=== PATIENT | female | born 1990 | race American Indian/Alaskan Native ===

== ENCOUNTER 2017-10-30 07:46 | Emergency (ER) | payer OTHER ==
[2017-10-30 07:50] VITALS: BP 150/96
--- NOTE | 2017-10-30 08:19 | Emergency Department Report ---
ED Neck Pain/Injury HPI - General Chief Complaint: Neck Pain/Injury Stated Complaint: RIGHT SIDE NECK PAIN Time Seen by Provider: 10/30/17 08:12 Source: patient, family Mode of arrival: Ambulatory Limitations: No Limitations - History of Present Illness Initial Comments: Patient reports right neck pain this radiating from her mid neck posteriorly. She is also complaining of upper mid back pain. Denies any injury and report this started yesterday. 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 It is not out of 10 in taking and she said it feels like she pulled something. She took some Advil yesterday but did not relieve her pain. Denies any head injury. Denies any numbness or tingling to extremities. Denies any chest pain or shortness of breath. She does have a history of high blood pressure and her blood pressures stable. Patient is currently on her menses. Denies any trauma to the neck. Pain is better at rest and worse with movement. Denies any fever or chills. MD Complaint: neck pain, upper back pain Onset/Timin -: days(s) Place: other (unknown) Radiation: right lateral, upper back Severity: severe Severity scale (0 -10): 9 Quality: aching Consistency: constant Improves With: remaining still Worsens With: movement of extremity, movement of neck Context: lifting, unknown Associated Symptoms: denies: headache, fever, numbness, tingling, weakness, vertigo, difficulty walking, swollen glands, difficulty swallowing, nausea, vomiting Treatments Prior to Arrival: other (NSAIDs) - Related Data Previous Rx's Medication Instructions Recorded Last Taken Type Ibuprofen [Motrin] 600 mg PO Q8H PRN #12 tablet 10/30/17 Unknown Rx traMADol [Ultram] 50 mg PO Q6HR PRN #12 tablet 10/30/17 Unknown Rx Allergies Allergy/AdvReac Type Severity Reaction Status Date / Time No Known Allergies Allergy Unverified 10/30/17 07:48 ED Review of Systems ROS: Stated complaint: RIGHT SIDE NECK PAIN Other details as noted in HPI Comment: All other systems reviewed and negative Constitutional: no symptoms reported Eyes: denies: eye pain, eye discharge, vision change ENT: denies: ear pain, throat pain, congestion Respiratory: no symptoms reported Cardiovascular: denies: chest pain, palpitations, dyspnea on exertion, edema, syncope, paroxysmal nocturnal dyspnea Gastrointestinal: denies: abdominal pain, nausea, vomiting Genitourinary: denies: dysuria, hematuria Musculoskeletal: arthralgia, myalgia. denies: back pain, joint swelling Skin: denies: rash Neurological: denies: headache, weakness, numbness, paresthesias, confusion, abnormal gait, vertigo ED Past Medical Hx - Past Medical History Previous Medical History?: Yes Hx Hypertension: Yes - Surgical History Past Surgical History?: Yes Additional Surgical History: C/S, right ovary and fallopian tube removed - Family History Family history: hypertension - Social History Smoking Status: Current Every Day Smoker Substance Use Type: None - Medications Home Medications: Home Medications Medication Instructions Recorded Confirmed Last Taken Type Ibuprofen [Motrin] 600 mg PO Q8H PRN #12 tablet 10/30/17 Unknown Rx traMADol [Ultram] 50 mg PO Q6HR PRN #12 tablet 10/30/17 Unknown Rx ED Physical Exam - General Limitations: No Limitations General appearance: alert, in no apparent distress - Head Head exam: Present: atraumatic, normocephalic, normal inspection, other (normal exam) - Eye Eye exam: Present: normal appearance, PERRL, EOMI Pupils: Present: normal accommodation - ENT ENT exam: Present: normal exam, normal orophraynx, mucous membranes moist, TM's normal bilaterally, normal external ear exam - Neck Neck exam: Present: normal inspection, tenderness (tender to palpate to C-spine) , full ROM. Absent: meningismus, lymphadenopathy - Expanded Neck Exam Expanded Neck exam: Present: tenderness. Absent: midline deformity, anterior neck swelling, tracheal deviation - Respiratory Respiratory exam: Present: normal lung sounds bilaterally. Absent: respiratory distress, chest wall tenderness - Cardiovascular Cardiovascular Exam: Present: regular rate, normal rhythm, normal heart sounds - GI/Abdominal GI/Abdominal exam: Present: soft, normal bowel sounds. Absent: distended, tenderness, guarding, rebound, rigid - Extremities Exam Extremities exam: Present: normal inspection, full ROM, normal capillary refill , other (i think, cyanosis or edema. +2 pulses to all extremities. Bilateral hand cma strong and Equal. No Neurovascular Compromise). Absent: tenderness , pedal edema, joint swelling, calf tenderness - Back Exam Back exam: Present: normal inspection, full ROM, other (ambulated without any difficulties). Absent: tenderness, CVA tenderness (R), CVA tenderness (L), muscle spasm, paraspinal tenderness, vertebral tenderness, rash noted - Expanded Back Exam Expanded Back exam: Absent: saddle anesthesia Back exam: Negative Straight Leg Raising: Left, Right - Neurological Exam Neurological exam: Present: alert, oriented X3, normal gait, reflexes normal, other (no focal neurological deficit. +5 strength in all extremities). Absent : motor sensory deficit - Psychiatric Psychiatric exam: Present: normal affect, normal mood - Skin Skin exam: Present: warm, dry, intact, normal color. Absent: rash ED Course Vital Signs 10/30/17 07:48 Temperature 98.5 F Pulse Rate 88 Respiratory 18 Rate Blood Pressure 150/96 O2 Sat by Pulse 100 Oximetry - Reevaluation(s) Reevaluation #1: 10/30/17 11:40 Patient received Percocet 5/325 2 tablets by mouth, Toradol 60 mg IM in emergency room for neck and upper back pain. ED Medical Decision Making - Lab Data Lab Results 10/30/17 Range/Units Unknown Urine Color Yellow (Yellow) Urine Turbidity Clear (Clear) Urine pH 5.0 (5.0-7.0) Ur Specific [place] 1.027 (1.003-1.030) Urine Protein 30 mg/dl (Negative) mg/dL Urine Glucose (UA) Neg (Negative) mg/dL Urine Ketones Tr (Negative) mg/dL Urine Blood Lg (Negative) Urine Nitrite Neg (Negative) Urine Bilirubin Neg (Negative) Urine Urobilinogen < 2.0 (<2.0) mg/dL Ur Leukocyte Esterase Neg (Negative) Urine WBC (Auto) 1.0 (0.0-6.0) /HPF Urine RBC (Auto) 4.0 (0.0-6.0) /HPF U Epithel Cells (Auto) 10.0 (0-13.0) /HPF Urine Mucus Few /HPF Urine HCG, Qual Negative (Negative) - Radiology Data Radiology results: report reviewed Patient had CT of C-spine which revealed very mild early degenerative changes of the cervical spine without acute fracture dislocation. CT scan of thoracic spine reveals very mild degenerative changes at T7 and 8. No acute fracture or dislocation. There is mention of anterior osteophytes formation at T7 to T8 with disc space narrowing. - Medical Decision Making ED course: Pt here complaining of upper back pain and pain to the back of her neck that started yesterday radiating to right side of his neck. She denies any traumatic injury. Patient states that she lists sometimes heavy objects at work. C-spine and T-spine is tender to palpate with no apparent vertebral tenderness. No signs of inflammation. Neurological exam is normal. I discussed patient's CT scan result, diagnosis and treatment plan and need to follow up with orthopedic doctor. She voiced understanding patient was given Percocet 5/325 mg 2 tablets by mouth and Toradol 60 mg IM in emergency room for neck and upper back pain. Urinalysis negative except she had large blood which she is on her menses. Urine test is negative. Patient discharged home in stable condition with prescription for Motrin and Ultram and to follow up with Dr. Bolivar in 2-3 days Critical care attestation.: If time is entered above; I have spent that time in minutes in the direct care of this critically ill patient, excluding procedure time. ED Disposition Clinical Impression: Multilevel degenerative disc disease, Neck arthralgia, Upper back pain Disposition: DC-01 TO HOME OR SELFCARE Is pt being admited?: No Does the pt Need Aspirin: No Condition: Stable Instructions: Back Pain (ED), Arthralgia (ED), Degenerative Disc Disease (ED) Additional Instructions: Please follow-up with orthopedic doctor as instructed Take Motrin and Ultram for pain as prescribed but please do not drive or operate heavy machinery while taking Ultram as this medication causes drowsiness Avoid heavy lifting for the next week. Prescriptions: Ibuprofen [Motrin] 600 mg PO Q8H PRN #12 tablet PRN Reason: Pain traMADol [Ultram] 50 mg PO Q6HR PRN #12 tablet PRN Reason: severe pain Referrals: PRIMARY CARE, [Primary Care Provider] - 2-3 Days KATHRYN BOLIVAR MD [Staff Physician] - 11/01/17 Forms: Accompanied Note, Work/School Release Form(ED)
[2017-10-30 09:34] LABS: Bilirubin,Urine NEG (Negative); Blood,Urine LG (Negative); Color,Urine Yellow (Yellow); Mucus,Urine FEW /HPF; Urobilinogen,Urine < 2.0 mg/dL (<2.0)
[2017-10-30 09:35] LABS: HCG Qualitative,Urine Negative (Negative)
--- NOTE | 2017-10-30 10:42 | Cat Scan Report ---
FINAL REPORT EXAM: CT CERVICAL SPINE WO CON HISTORY: c spine pain COMPARISON: None. TECHNIQUE: Multiple contiguous axial images were obtained through the cervical spine without administration of IV contrast. Reformatted sagittal and coronal images were available for review. FINDINGS: There is normal alignment without acute fracture or dislocation. The vertebral body heights are maintained. The posterior elements are intact. The paravertebral soft tissues are normal. The airway is patent. There are mild hypertrophic changes of the C1-C2 articulation. C2-C3: Mild intervertebral disc space narrowing and uncovertebral osteophyte formation. No central or foraminal stenosis. C3-C4: Normal. C4-C5: Normal. C5-C6: Mild intervertebral disc space narrowing and uncovertebral osteophyte formation. No central or foraminal stenosis. C6-C7: Mild intervertebral disc space narrowing with uncovertebral and anterior osteophyte formation. No central or foraminal stenosis. C7-T1: Normal. IMPRESSION: Very mild early degenerative changes of the cervical spine without acute fracture or dislocation.
--- NOTE | 2017-10-30 10:46 | Cat Scan Report ---
FINAL REPORT EXAM: CT THORACIC SPINE WO CON HISTORY: T spine pain COMPARISON: None. TECHNIQUE: Multiple contiguous axial images were obtained through the thoracic spine without administration of IV contrast. Reformatted sagittal and coronal images were available for review. FINDINGS: There is normal alignment without acute fracture or dislocation. The vertebral body heights are maintained. There is no central or foraminal stenosis. There is mild intervertebral disc space narrowing with anterior osteophyte formation at T7-T8. The posterior elements are intact. The paravertebral soft tissues are normal. Visualized portion of the lungs is clear. IMPRESSION: Very mild degenerative changes at T7-T8. No acute fracture or dislocation.
[2017-10-30] MEDS ORDERED: PERCOCET 5/325 PO ONE (11:32)
[2017-10-30] MEDS ORDERED: TORADOL IM ONE (11:32)
== END 2017-10-30 12:28 | disposition home or self-care (01) ==
LOC: ED 07:46
DX: M51.34 Other intervertebral disc degeneration, thoracic region (principal); M54.9 Dorsalgia, unspecified; M54.2 Cervicalgia; I10 Essential (primary) hypertension; F17.200 Nicotine dependence, unspecified, uncomplicated
CPT/HCPCS: 72125; 72128; 81001; 81025; 96372; 99284; J1885

== ENCOUNTER 2017-11-06 21:10 | Emergency (ER) | payer SELFPAY ==
[2017-11-06] MEDS ORDERED: CATAPRES PO ONE (22:31)
[2017-11-06 23:03] LABS: Hematocrit 39.4 % (30.3-42.9); Hemoglobin 12.8 gm/dl (10.1-14.3); Mean Corpuscular HGB Conc 33 % (30-34); Mean Corpuscular Hemoglobin 30 pg (28-32); Mean Corpuscular Volume 91 fl (79-97); Platelet Count 328 K/mm3 (140-440); Red Blood Count 4.31 M/mm3 (3.65-5.03); Red Cell Distribution Width 16.7 % (13.2-15.2)
[2017-11-06 23:16] LABS: BUN/Creatinine Ratio 9; Blood Urea Nitrogen 8 mg/dL (7-17); Calcium 8.7 mg/dL (8.4-10.2); Hemolysis Index 6
[2017-11-06 23:20] LABS: INR 0.87 (0.87-1.13)
[2017-11-07 01:21] LABS: Basophils % (Manual) 0 % (0.0-1.8); Eosinophils % (Manual) 0 % (0.0-4.3); Total Cells Counted 100
[2017-11-07 01:23] LABS: Platelet Estimate Consistent w Auto
--- NOTE | 2017-11-07 06:57 | Emergency Department Report ---
ED General Adult HPI - General Chief complaint: High BP Stated complaint: RIGHT ARM,SHOULDER PAIN Time Seen by Provider: 11/07/17 06:50 Source: patient Mode of arrival: Ambulatory Limitations: No Limitations - History of Present Illness Initial comments: Patient presents to the emergency department with complaint of neck pain that radiates into her right arm and hand. Patient also complains that she has some tingling from the elbow down on the right side as well. Patient states she was seen here on October 30 and received CAT scans of her neck and back that showed degenerative joint disease. Patient denies any chest pain, abdominal pain, headache, facial droop, slurred speech. -: Gradual Radiation: other (into her right arm and hand) Severity scale (0 -10): 5 Quality: burning, aching, constant Consistency: constant Improves with: none Worsens with: none Associated Symptoms: denies other symptoms Treatments Prior to Arrival: NSAID - Related Data Previous Rx's Medication Instructions Recorded Last Taken Type Ibuprofen [Motrin] 600 mg PO Q8H PRN #12 tablet 10/30/17 Unknown Rx traMADol [Ultram] 50 mg PO Q6HR PRN #12 tablet 10/30/17 Unknown Rx Ibuprofen [Motrin] 800 mg PO Q8HR PRN #30 tablet 11/07/17 Unknown Rx Metoprolol [Lopressor TAB] 25 mg PO BID 30 Days #60 tablet 11/07/17 Unknown Rx Prednisone 50 mg PO QDAY #5 tablet 11/07/17 Unknown Rx Allergies Allergy/AdvReac Type Severity Reaction Status Date / Time No Known Allergies Allergy Verified 11/06/17 22:12 ED Review of Systems ROS: Stated complaint: RIGHT ARM,SHOULDER PAIN Other details as noted in HPI Comment: All other systems reviewed and negative Constitutional: denies: chills, fever Eyes: denies: eye pain, eye discharge, vision change ENT: denies: ear pain, throat pain Respiratory: denies: cough, shortness of breath, wheezing Cardiovascular: denies: chest pain, palpitations Endocrine: no symptoms reported Gastrointestinal: denies: abdominal pain, nausea, diarrhea Genitourinary: denies: urgency, dysuria, discharge Musculoskeletal: denies: back pain, joint swelling, arthralgia Skin: denies: rash, lesions Neurological: denies: headache, weakness, paresthesias Psychiatric: denies: anxiety, depression Hematological/Lymphatic: denies: easy bleeding, easy bruising ED Past Medical Hx - Past Medical History Hx Hypertension: Yes - Surgical History Additional Surgical History: C/S, right ovary and fallopian tube removed - Social History Smoking Status: Heavy Tobacco Smoker Substance Use Type: Alcohol - Medications Home Medications: Home Medications Medication Instructions Recorded Confirmed Last Taken Type Ibuprofen [Motrin] 600 mg PO Q8H PRN #12 tablet 10/30/17 Unknown Rx traMADol [Ultram] 50 mg PO Q6HR PRN #12 tablet 10/30/17 Unknown Rx Ibuprofen [Motrin] 800 mg PO Q8HR PRN #30 tablet 11/07/17 Unknown Rx Metoprolol [Lopressor TAB] 25 mg PO BID 30 Days #60 tablet 11/07/17 Unknown Rx Prednisone 50 mg PO QDAY #5 tablet 11/07/17 Unknown Rx ED Physical Exam - General Limitations: No Limitations General appearance: alert, in no apparent distress - Head Head exam: Present: atraumatic, normocephalic - Eye Eye exam: Present: normal appearance, PERRL, EOMI - ENT ENT exam: Present: mucous membranes moist - Neck Neck exam: Present: normal inspection, other (palpation of the paracervical region) - Respiratory Respiratory exam: Present: normal lung sounds bilaterally. Absent: respiratory distress, wheezes, rales, rhonchi - Cardiovascular Cardiovascular Exam: Present: regular rate, normal rhythm. Absent: systolic murmur, diastolic murmur, rubs, gallop - GI/Abdominal GI/Abdominal exam: Present: soft, normal bowel sounds. Absent: distended, tenderness - Extremities Exam Extremities exam: Present: normal inspection - Back Exam Back exam: Present: normal inspection - Neurological Exam Neurological exam: Present: alert, oriented X3, CN II-XII intact. Absent: motor sensory deficit - Psychiatric Psychiatric exam: Present: normal affect, normal mood - Skin Skin exam: Present: warm, dry, intact, normal color. Absent: rash ED Course Vital Signs 11/06/17 11/06/17 22:12 22:41 Temperature 98.1 F Pulse Rate 75 74 Respiratory 16 Rate Blood Pressure 164/116 164/116 O2 Sat by Pulse 100 Oximetry ED Medical Decision Making - Lab Data Result diagrams: 11/06/17 22:32 11/06/17 22:32 - Medical Decision Making Patient received clonidine prior to me seeing the patient. Discussed plan of care with patient CT from October 30 was reviewed Critical care attestation.: If time is entered above; I have spent that time in minutes in the direct care of this critically ill patient, excluding procedure time. ED Disposition Clinical Impression: Cervical radiculopathy, Hypertension Disposition: TO HOME OR SELFCARE Is pt being admited?: No Does the pt Need Aspirin: No Condition: Stable Instructions: Hypertension (ED), Cervical Radiculopathy (ED) Prescriptions: Ibuprofen [Motrin] 800 mg PO Q8HR PRN #30 tablet PRN Reason: Pain Metoprolol [Lopressor TAB] 25 mg PO BID 30 Days #60 tablet Prednisone 50 mg PO QDAY #5 tablet Referrals: PRIMARY CARE, [Primary Care Provider] - 3-5 Days URIEL SWANSON MD [Staff Physician] - 3-5 Days Time of Disposition: 08:19
[2017-11-07] MEDS ORDERED: VALIUM PO ONE (06:58)
[2017-11-07] MEDS ORDERED: ULTRAM PO ONE (06:58)
[2017-11-07] MEDS ORDERED: DELTASONE PO ONE (06:58)
[2017-11-07] MEDS ORDERED: NORCO 10/325 PO ONE (09:33)
[2017-11-07] MEDS ORDERED: ZOFRAN ODT PO ONE (09:34)
[2017-11-07 10:04] VITALS: BP 138/84
== END 2017-11-07 10:08 | disposition home or self-care (01) ==
LOC: ED 21:10
DX: M54.12 Radiculopathy, cervical region (principal); I10 Essential (primary) hypertension; F17.200 Nicotine dependence, unspecified, uncomplicated
CPT/HCPCS: 36415; 80048; 84484; 84703; 85007; 85025; 85610; 85670; 85730; 93005; 93010; 99283; J7512; Q0162

== ENCOUNTER 2018-04-25 13:53 | Emergency (ER) | payer OTHER ==
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
[2018-04-25] MEDS ORDERED: TORADOL IM ONE (15:13)
--- NOTE | 2018-04-25 16:08 | XRay Report ---
FINAL REPORT EXAM: XR CHEST ROUTINE 2V HISTORY: left sided chest pain TECHNIQUE: Frontal and lateral chest radiographs. PRIORS: None. FINDINGS: The cardiomediastinal silhouette is normal. No focal consolidation. No pleural effusion. No pneumothorax. No acute osseous abnormality. IMPRESSION: No acute cardiopulmonary process.
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
--- NOTE | 2018-04-25 17:22 | Cat Scan Report ---
FINAL REPORT EXAM: CT HEAD/BRAIN WO CON HISTORY: headache TECHNIQUE: CT of the head was performed without intravenous contrast. PRIORS: None. FINDINGS: The ventricles are normal in shape and position. The ventricles are nondilated. No intracranial hemorrhage, mass, mass effect, midline shift or evidence of acute ischemic infarct. The basilar cisterns are patent. The paranasal sinuses are clear. The extracranial soft tissues demonstrate no abnormality. The calvarium is intact. The orbits are intact. The mastoid air cells are clear. IMPRESSION: No acute intracranial abnormality.
[2018-04-25] MEDS ORDERED: NORVASC PO ONE (17:51)
[2018-04-25] MEDS ORDERED: ULTRAM PO ONE (18:05)
[2018-04-25] MEDS ORDERED: ULTRAM ONE (18:09)
[2018-04-25 18:10] VITALS: BP 163/115
== END 2018-04-25 18:55 | disposition home or self-care (01) ==
LOC: ED 13:53
DX: S16.1XXA Strain of muscle, fascia and tendon at neck level, initial encounter (principal); M94.0 Chondrocostal junction syndrome [Tietze]; R51 Headache; I10 Essential (primary) hypertension; Z90.721 Acquired absence of ovaries, unilateral; V49.59XA Passenger injured in collision with other motor vehicles in traffic accident, initial encounter; Y93.89 Activity, other specified; Y92.89 Other specified places as the place of occurrence of the external cause; Y99.8 Other external cause status
CPT/HCPCS: 70450; 71046; 72040; 96372; 99284; J1885

== ENCOUNTER 2018-08-09 14:31 | Emergency (ER) | payer MEDICAID, OTHER ==
[2018-08-09] MEDS ORDERED: BENADRYL PO ONE (15:14)
[2018-08-09] MEDS ORDERED: DELTASONE PO ONE (15:14)
--- NOTE | 2018-08-09 15:18 | Emergency Department Report ---
ED Rash HPI - HPI Chief Complaint: Skin Rash Stated Complaint: FACE BURNING FROM FACIAL SOAP Time Seen by Provider: 08/09/18 15:12 Duration: 2 Days Location: Other (face) Suspected Cause: Other (use soap, black soap) Rash Symptoms: Yes Itching, Yes Peeling, No Facial Swelling, No Tongue/Oral Swelling, No Breathing Difficulties, No Choking Sensation, No Wheezing/Dyspnea, No Blistering, No Fever, No Lightheaded, No Malaise, No Myalgias Severity: moderate Other History: She reports that she started using black silk 3 days ago and 2 days ago she noted itching around her facial area around mouth and chin. She reports that she has mild pain to the site that is tingling. 08/18. No alleviating or exacerbating factor. She reports that it is dry scaly and she does have a history of eczema but reported that it is not her eczema rash. Denies any respiratory problems. No Medication use ED Review of Systems ROS: Stated complaint: FACE BURNING FROM FACIAL SOAP Other details as noted in HPI Constitutional: denies: chills, fever ENT: denies: ear pain, throat pain, congestion Respiratory: denies: cough, shortness of breath, stridor, wheezing Cardiovascular: denies: chest pain, palpitations, edema, syncope Gastrointestinal: denies: nausea, vomiting Musculoskeletal: denies: back pain, joint swelling, arthralgia Skin: rash, pruritus Neurological: denies: headache ED Past Medical Hx - Past Medical History Previous Medical History?: Yes Hx Hypertension: Yes - Surgical History Past Surgical History?: Yes Additional Surgical History: C/S, right ovary and fallopian tube removed - Family History Family history: no significant - Social History Smoking Status: Current Every Day Smoker Substance Use Type: None - Medications Home Medications: Home Medications Medication Instructions Recorded Confirmed Last Taken Type Ibuprofen [Motrin] 600 mg PO Q8H PRN #12 tablet 10/30/17 Unknown Rx traMADol [Ultram] 50 mg PO Q6HR PRN #12 tablet 10/30/17 Unknown Rx Ibuprofen [Motrin] 800 mg PO Q8HR PRN #30 tablet 11/07/17 Unknown Rx Metoprolol [Lopressor TAB] 25 mg PO BID 30 Days #60 tablet 11/07/17 Unknown Rx predniSONE [Prednisone] 50 mg PO QDAY #5 tablet 11/07/17 Unknown Rx Acetaminophen/Codeine [Tylenol 1 tab PO Q6H PRN #8 tab 04/25/18 Unknown Rx /Codeine # 3 tab] Ibuprofen [Motrin 800 MG tab] 800 mg PO Q8HR PRN #12 tablet 04/25/18 Unknown Rx amLODIPine [Norvasc] 10 mg PO ONCE #30 tablet 04/25/18 Unknown Rx methOCARBAMOL [Robaxin TAB] 500 mg PO BID #10 tab 04/25/18 Unknown Rx HYDROcodone/APAP 5-325 [[place] 1 each PO Q4HR PRN #12 tablet 05/01/18 Unknown Rx 5/325] Ibuprofen [Motrin] 600 mg PO Q8H PRN #20 tablet 05/01/18 Unknown Rx Ondansetron [Zofran Odt] 4 mg PO Q8HR PRN #10 tab.rapdis 05/01/18 Unknown Rx Cetirizine HCl [ZyrTEC] 10 mg PO QAM 7 Days #7 capsule 08/09/18 Unknown Rx methylPREDNISolone [Medrol] 4 mg PO QAM 6 Days #1 tab.ds.pk 08/09/18 Unknown Rx Rash Exam - Exam General: Vital signs noted. No distress. Alert and acting appropriately. 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 HEENT: No Periorbital Edema, No Conjuctival Injection, No Chemosis, No Perioral Edema, No Tongue Edema, No Uvular Edema, No Compromised Airway, No Drooling Lungs: Yes Good Air Exchange, No Wheezes, No Ronchi, No Stridor, No Cough, No Labored Respirations, No Retractions, No Use of Accessory Muscles, No Other Abnormal Lung Sounds Heart: Yes Regular, No Murmur Front/Back of Body, Lg (Color): 1 - Noted to her scaly area mandible bilateral around mouth and chin. No erythema noted nontender to palpate. Skin: Yes Other (dry scaly area around the lateral mandible area, close the mouth without any drainage, induration or fluctuance. Hyperpigmented), No Urticarial Rash, No Maculopapular Rash, No Morbilliform rash, No Bulla(e), No Excoriations, No Weeping, No Tenderness, No Erythema, No Edema, No Encrustations ED Course Vital Signs 08/09/18 14:42 Temperature 98.4 F Pulse Rate 83 Respiratory 18 Rate Blood Pressure 166/116 O2 Sat by Pulse 100 Oximetry Vital Signs 08/09/18 08/09/18 14:42 15:28 Temperature 98.4 F 98.2 F Pulse Rate 83 78 Respiratory 18 15 Rate Blood Pressure 166/116 Blood Pressure 150/108 [Left] O2 Sat by Pulse 100 100 Oximetry - Reevaluation(s) Reevaluation #1: 08/09/18 15:22 Given Benadryl 50 mg by mouth and Deltasone 60 mg in Emergency room with no adverse reaction. ED Medical Decision Making - Medical Decision Making This is a 27-year-old female here for dry scaly rash to her facial area on both sides mandible and nontender. She is found to have allergic rash probably from new soap that she is using. She was given 60 mg by mouth and Phenergan. Emerge ncy room. I discussed the patient that she can use vitamin C and E combination to put in facial area as this is less Caustic than lotion because she said lotion was making her face burn. I also discussed with her put on Medrol Dosepak and Zyrtec to help with rash and to avoid putting topical steroid on her face as skin changes and she was understanding. 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 On her face. She was understanding and. Given prescription for Medrol Dosepak and Zyrtec Critical care attestation.: If time is entered above; I have spent that time in minutes in the direct care of this critically ill patient, excluding procedure time. ED Disposition Clinical Impression: Elevated blood pressure reading with diagnosis of hypertension Contact dermatitis Qualifiers: Contact dermatitis type: unspecified Contact dermatitis trigger: unspecified trigger Qualified Code(s): L25.9 - Unspecified contact dermatitis, unspecified cause Disposition: DC-01 TO HOME OR SELFCARE Is pt being admited?: No Does the pt Need Aspirin: No Condition: Stable Instructions: Acute Rash (ED), Hypertension (ED), DASH Eating Plan (ED) Additional Instructions: Please see medications prescribed Dermatologists in 3 days. Call today to schedule an appointment. Stop Using offending agent Keep record a few blood pressure in a daily basis and take to primary care physician with [facility] for evaluation and possible adjustment of medication. Please adhere to current medication treatment plan for blood pressure. Prescriptions: Cetirizine HCl [ZyrTEC] 10 mg PO QAM 7 Days #7 capsule methylPREDNISolone [Medrol] 4 mg PO QAM 6 Days #1 tab.ds.pk Referrals: TESFAYE HERRERA MD [Staff Physician] - 08/12/18 [facility] [Outside] - 3-5 Days (Primary care physician regarding management of elevated blood pressure) Forms: Accompanied Note
[2018-08-11 12:20] VITALS: BP 150/108
== END 2018-08-09 15:36 | disposition home or self-care (01) ==
LOC: ED 14:31
DX: L25.9 Unspecified contact dermatitis, unspecified cause (principal); I10 Essential (primary) hypertension; F17.200 Nicotine dependence, unspecified, uncomplicated
CPT/HCPCS: 99282; J7512

== ENCOUNTER 2018-09-05 09:43 | Emergency (ER) | payer OTHER ==
[2018-09-05] MEDS ORDERED: MORPHINE IV ONE ×2 (10:11→12:18)
[2018-09-05] MEDS ORDERED: ZOFRAN IV ONE (10:11)
--- NOTE | 2018-09-05 10:15 | Emergency Department Report ---
HPI - General Chief Complaint: High BP Time Seen by Provider: 09/05/18 10:11 - HPI HPI: 27-year-old -[place] female presents to the emergency department with a one-week history of a headache and some elevated blood pressure. The patient is a history of migraines and says that this feels similar except for she has had a few days of some blurry vision. She denies any numbness, paresthesias, trouble with movement or ambulation, or any other neurological deficits. She is tried Goody's powder multiple times for her symptoms without any relief. She does have a history of hypertension but has been out of her blood pressure medications for about one year. She does not have a primary care physician. No recent travel or sick contacts at home. ED Past Medical Hx - Past Medical History Hx Hypertension: Yes Hx Headaches / Migraines: Yes - Surgical History Additional Surgical History: C/S, right ovary and fallopian tube removed - Social History Smoking Status: Current Every Day Smoker Substance Use Type: None - Medications Home Medications: Home Medications Medication Instructions Recorded Confirmed Last Taken Type Ibuprofen [Motrin] 600 mg PO Q8H PRN #12 tablet 10/30/17 Unknown Rx traMADol [Ultram] 50 mg PO Q6HR PRN #12 tablet 10/30/17 Unknown Rx Ibuprofen [Motrin] 800 mg PO Q8HR PRN #30 tablet 11/07/17 Unknown Rx RX: Metoprolol [Lopressor TAB] 25 mg PO BID 30 Days #60 tablet 11/07/17 Unknown Rx RX: predniSONE [Prednisone] 50 mg PO QDAY #5 tablet 11/07/17 Unknown Rx Acetaminophen/Codeine [Tylenol 1 tab PO Q6H PRN #8 tab 04/25/18 Unknown Rx /Codeine # 3 tab] RX: Ibuprofen [Motrin 800 MG tab] 800 mg PO Q8HR PRN #12 tablet 04/25/18 Unknown Rx RX: amLODIPine [Norvasc] 10 mg PO ONCE #30 tablet 04/25/18 Unknown Rx methOCARBAMOL [Robaxin TAB] 500 mg PO BID #10 tab 04/25/18 Unknown Rx Ibuprofen [Motrin] 600 mg PO Q8H PRN #20 tablet 05/01/18 Unknown Rx Ondansetron [Zofran Odt] 4 mg PO Q8HR PRN #10 tab.rapdis 05/01/18 Unknown Rx Cetirizine HCl [ZyrTEC] 10 mg PO QAM 7 Days #7 capsule 08/09/18 Unknown Rx methylPREDNISolone [Medrol] 4 mg PO QAM 6 Days #1 tab.ds.pk 08/09/18 Unknown Rx Amlodipine Besylate [Norvasc] 10 mg PO QDAY #30 tablet 09/05/18 Unknown Rx RX: HYDROcodone/APAP 5-325 [[place] 1 each PO Q6H PRN #10 tablet 09/05/18 Unknown Rx 5-325 mg TAB] ED Review of Systems ROS: Stated complaint: HBP/NAUSEA Other details as noted in HPI Comment: All other systems reviewed and negative Constitutional: denies: chills, fever Eyes: vision change (blurry). denies: eye pain ENT: denies: ear pain, throat pain Respiratory: denies: cough, shortness of breath Cardiovascular: denies: chest pain, palpitations Gastrointestinal: denies: abdominal pain, vomiting Genitourinary: denies: dysuria, discharge Musculoskeletal: denies: back pain, arthralgia Skin: denies: rash, lesions Neurological: headache. denies: weakness, numbness, paresthesias, confusion Physical Exam - Physical Exam Vital Signs: Vital Signs 09/05/18 09:49 Temperature 98.9 F Pulse Rate 80 Respiratory 16 Rate Blood Pressure 176/127 O2 Sat by Pulse 99 Oximetry Physical Exam: GENERAL: The patient is well-developed well-nourished. HEENT: Normocephalic. Atraumatic. Patient has moist mucous membranes. EYES: Extraocular motions are intact. Pupils are equal and reactive to light bilaterally. No nystagmus. NECK: Supple. Trachea is midline. CHEST/LUNGS: Clear to auscultation. There is no respiratory distress noted. HEART/CARDIOVASCULAR: Regular. There is no tachycardia. There is no obvious murmur. ABDOMEN: There is no abdominal distention. SKIN: Skin is warm and dry. NEURO: The patient is awake, alert, and oriented. The patient is cooperative. The patient has no focal neurologic deficits. The patient has normal speech. Cranial nerves II through XII grossly intact. MUSCULOSKELETAL: There is no tenderness or deformity. There is no limitation range of motion. There is no evidence of acute injury. ED Course Vital Signs 09/05/18 09:49 Temperature 98.9 F Pulse Rate 80 Respiratory 16 Rate Blood Pressure 176/127 O2 Sat by Pulse 99 Oximetry ED Medical Decision Making - Lab Data Result diagrams: 09/05/18 10:27 09/05/18 10:27 - Radiology Data Radiology results: report reviewed CT HEAD WITHOUT CONTRAST: HISTORY: Headache. TECHNIQUE: Sequential 2.5mm CT images. COMPARISON: 04/25/18. FINDINGS: Cerebral Parenchyma: Within normal limits. Cerebellum: Within normal limits. Brainstem: Within normal limits. Ventricles: Normal. Sella: Normal. Extra-axial spaces: Normal. Basal Cisterns: Normal. Intracranial Hemorrhage: None. Midline Shift: None. Calvarium: Normal. Sinuses: Normal. Mastoid Air Cells: Normal. Visualized Orbits: Normal. IMPRESSION: Cranial CT scan within normal limits. Transcribed By: TTR Dictated By: BEATRIZ CALLES JR, MD Electronically Authenticated By: BEATRIZ CALLES JR, MD Signed Date/Time: 09/05/18 1252 - Medical Decision Making Patient presents to the emergency department with complaint of a left-sided h eadache with some blurry vision and some hypertension. She does have a history of migraines. The patient also has a history of hypertension and has been without her blood pressure medications for the past year. A CT scan of the head was done without contrast that did not show any bleed, shift, mass, ischemia, or any other acute process. On physical examination she does not have any focal, motor or sensory deficits in her cranial nerves appear intact. She was given a few doses of pain medication along with antiemetics and upon reevaluation she is feeling improved. Labs have been unremarkable including her CBC, metabolic panel, ESR. Prior to discharge, the patient was seen ambulatory in both appears and feels stable. She has been given referrals for primary care and neurology. She will return to the ER with any worsening of her symptoms or any acute distress. - Differential Diagnosis tension headache, migraine, subarachnoid hemorrhage, cluster headache Critical Care Time: No Critical care attestation.: If time is entered above; I have spent that time in minutes in the direct care of this critically ill patient, excluding procedure time. ED Disposition Clinical Impression: Headache Qualifiers: Headache type: unspecified Headache chronicity pattern: acute headache Intractability: not intractable Qualified Code(s): R51 - Headache Hypertension Qualifiers: Hypertension type: essential hypertension Qualified Code(s): I10 - Essential (primary) hypertension Disposition: - TO HOME OR SELFCARE Is pt being admited?: No Condition: Stable Instructions: How to Stop Smoking (ED), Migraine Headache (ED), Acute Headache (ED), Hypertension (ED) Additional Instructions: Please follow up with a primary care physician in the next few days. Return to the emergency Department with any worsening of your symptoms or any acute distress. I have given you a referral for a local neurologist, Dr. Mercedes, to follow up regarding her headaches. You have been prescribed a medication that can be sedating. Therefore, this medication cannot be taken prior to driving, working, being responsible for children, and cannot be mixed with alcohol of any quantity.r Prescriptions: Amlodipine Besylate [Norvasc] 10 mg PO QDAY #30 tablet RX: HYDROcodone/APAP 5-325 [[place] 5-325 mg TAB] 1 each PO Q6H PRN #10 tablet PRN Reason: Pain Referrals: ALISSA KRUEGER DO [Staff Physician] - 2-3 Days OSIRIS MERCEDES MD [Staff Physician] - 2-3 Days [facility] [Outside] - 2-3 Days Time of Disposition: 15:02
[2018-09-05 10:44] LABS: Hematocrit 38.3 % (30.3-42.9); Hemoglobin 12.6 gm/dl (10.1-14.3); Mean Corpuscular HGB Conc 33 % (30-34); Mean Corpuscular Hemoglobin 31 pg (28-32); Mean Corpuscular Volume 94 fl (79-97); Platelet Count 334 K/mm3 (140-440); Red Blood Count 4.06 M/mm3 (3.65-5.03); Red Cell Distribution Width 14.9 % (13.2-15.2)
[2018-09-05 10:57] LABS: Basophils # (Auto) 0.1 K/mm3 (0.0-0.1); Basophils % (Auto) 1.3 % (0.0-1.8); Eosinophils % (Auto) 0.7 % (0.0-4.3); Lymphocytes # (Auto) 1.2 K/mm3 (1.2-5.4); Lymphocytes % (Auto) 24.1 % (13.4-35.0); Monocytes # (Auto) 0.6 K/mm3 (0.0-0.8); Monocytes % (Auto) 12.2 % (0.0-7.3)
[2018-09-05 11:07] LABS: BUN/Creatinine Ratio 15; Blood Urea Nitrogen 9 mg/dL (7-17); Calcium 8.5 mg/dL (8.4-10.2); Hemolysis Index 5
[2018-09-05] MEDS ORDERED: NORVASC PO ONE (11:42)
--- NOTE | 2018-09-05 12:56 | Cat Scan Report ---
CT HEAD WITHOUT CONTRAST: HISTORY: Headache. TECHNIQUE: Sequential 2.5mm CT images. COMPARISON: 04/25/18. FINDINGS: Cerebral Parenchyma: Within normal limits. Cerebellum: Within normal limits. Brainstem: Within normal limits. Ventricles: Normal. Sella: Normal. Extra-axial spaces: Normal. Basal Cisterns: Normal. Intracranial Hemorrhage: None. Midline Shift: None. Calvarium: Normal. Sinuses: Normal. Mastoid Air Cells: Normal. Visualized Orbits: Normal. IMPRESSION: Cranial CT scan within normal limits.
[2018-09-05] MEDS ORDERED: APRESOLINE IV ONE (13:24)
[2018-09-05 14:58] VITALS: BP 159/107
== END 2018-09-05 15:23 | disposition home or self-care (01) ==
LOC: ED 09:43
DX: I10 Essential (primary) hypertension (principal); G43.909 Migraine, unspecified, not intractable, without status migrainosus; F17.200 Nicotine dependence, unspecified, uncomplicated; Z91.018 Allergy to other foods
CPT/HCPCS: 36415; 70450; 80048; 84703; 85025; 85652; 96374; 96375; 96376; 99284; G0480; J0360; J2270; J2405; 80320

== ENCOUNTER 2019-03-14 16:28 | Emergency (ER) | payer SELFPAY ==
[2019-03-14] MEDS ORDERED: BENADRYL IV ONE (17:34)
[2019-03-14] MEDS ORDERED: TORADOL IV ONE (17:34)
[2019-03-14] MEDS ORDERED: REGLAN IV ONE (17:34)
[2019-03-14] MEDS ORDERED: CATAPRES PO ONE (17:34)
--- NOTE | 2019-03-14 17:36 | Event Note ---
ED Screening Note Date of service: 03/14/19 Time: 17:32 ED Screening Note: 28 y/o female comes in for elevated blood pressure and migraine. Having blurry vision, light sensitivity sound sensitivity. nausea no vomiting. LMP 03/04/19 This initial assessment/diagnostic orders/clinical plan/treatment(s) is/are subject to change based on patients health status, clinical progression and re- assessment by fellow clinical providers in the ED. Further treatment and workup at subsequent clinical providers discretion. Patient/guardian urged not to elope from the ED as their condition may be serious if not clinically assessed and managed. Initial orders include:
--- NOTE | 2019-03-14 18:38 | Emergency Department Report ---
ED Headache HPI - General Chief Complaint: Headache Stated Complaint: MIGRAINE/NAUSEA/BP CHECK Time Seen by Provider: 03/14/19 17:31 - History of Present Illness Initial Comments: 28 y/o female comes in for elevated blood pressure and migraine. Having blurry vision, light sensitivity sound sensitivity. nausea no vomiting. LMP 03/04/19 , pain rated at 5/10 exacerbated by light and activity patient states out of BP medicines were last month . No chest pain or shortness of breath no dizziness or lightheadedness, no fever or neck pain this headache is in same location as usual location. Timing/Duration: 24 hours Quality: moderate Head Injury Location: frontal Recent Head Trauma: no recent headache/trauma, occasional headaches Associated Symptoms: denies: fever/chills, loss of consciousness, nausea/vomiting, nasal congestion, nasal drainage, seizures, sinus infection, stiff neck, weakness Allergies/Adverse Reactions: Allergies No Known Allergies Allergy (Verified 03/14/19 16:31) Home Medications: Ambulatory Orders Ibuprofen [Motrin] 600 mg PO Q8H PRN #12 tablet 10/30/17 traMADol [Ultram] 50 mg PO Q6HR PRN #12 tablet 10/30/17 Ibuprofen [Motrin] 800 mg PO Q8HR PRN #30 tablet 11/07/17 Metoprolol [Lopressor TAB] 25 mg PO BID 30 Days #60 tablet 11/07/17 predniSONE [Prednisone] 50 mg PO QDAY #5 tablet 11/07/17 Acetaminophen/Codeine [Tylenol /Codeine # 3 tab] 1 tab PO Q6H PRN #8 tab 04/25/18 Ibuprofen [Motrin 800 MG tab] 800 mg PO Q8HR PRN #12 tablet 04/25/18 amLODIPine [Norvasc] 10 mg PO ONCE #30 tablet 04/25/18 methOCARBAMOL [Robaxin TAB] 500 mg PO BID #10 tab 04/25/18 Ibuprofen [Motrin] 600 mg PO Q8H PRN #20 tablet 05/01/18 Ondansetron [Zofran Odt] 4 mg PO Q8HR PRN #10 tab.rapdis 05/01/18 Cetirizine HCl [ZyrTEC] 10 mg PO QAM 7 Days #7 capsule 08/09/18 methylPREDNISolone [Medrol] 4 mg PO QAM 6 Days #1 tab.ds.pk 08/09/18 Amlodipine Besylate [Norvasc] 10 mg PO QDAY #30 tablet 09/05/18 HYDROcodone/APAP 5-325 [[place] 5-325 mg TAB] 1 each PO Q6H PRN #10 tablet 09/05/18 Acetaminophen [Acetaminophen TAB] 1,000 mg PO Q6HR PRN #30 tablet 03/14/19 Metoclopramide [Reglan] 10 mg PO Q6H PRN #30 tablet 03/14/19 amLODIPine [Norvasc] 10 mg PO DAILY #30 tab 03/14/19 diphenhydrAMINE [Benadryl CAP] 25 mg PO Q6HR PRN #30 capsule 03/14/19 ED Review of Systems ROS: Stated complaint: MIGRAINE/NAUSEA/BP CHECK Other details as noted in HPI Constitutional: denies: chills, fever, weakness Eyes: denies: eye pain, eye discharge, vision change ENT: congestion. denies: ear pain, throat pain, dental pain Respiratory: cough. denies: shortness of breath, wheezing Cardiovascular: denies: chest pain, palpitations, orthopnea Endocrine: no symptoms reported Gastrointestinal: nausea, vomiting. denies: abdominal pain, diarrhea, constipation Genitourinary: denies: urgency, dysuria, frequency, hematuria, discharge Musculoskeletal: denies: back pain, joint swelling, arthralgia Skin: denies: rash, lesions Neurological: denies: headache, weakness, paresthesias Psychiatric: denies: anxiety, depression Hematological/Lymphatic: denies: easy bleeding, easy bruising ED Past Medical Hx - Past Medical History Previous Medical History?: Yes Hx Hypertension: Yes Hx Headaches / Migraines: Yes - Surgical History Past Surgical History?: Yes Additional Surgical History: C/S, right ovary and fallopian tube removed - Social History Smoking Status: Current Every Day Smoker Substance Use Type: None - Medications Home Medications: Home Medications Medication Instructions Recorded Confirmed Last Taken Type Ibuprofen [Motrin] 600 mg PO Q8H PRN #12 tablet 10/30/17 Unknown Rx traMADol [Ultram] 50 mg PO Q6HR PRN #12 tablet 10/30/17 Unknown Rx Ibuprofen [Motrin] 800 mg PO Q8HR PRN #30 tablet 11/07/17 Unknown Rx Metoprolol [Lopressor TAB] 25 mg PO BID 30 Days #60 tablet 11/07/17 Unknown Rx predniSONE [Prednisone] 50 mg PO QDAY #5 tablet 11/07/17 Unknown Rx Acetaminophen/Codeine [Tylenol 1 tab PO Q6H PRN #8 tab 04/25/18 Unknown Rx /Codeine # 3 tab] Ibuprofen [Motrin 800 MG tab] 800 mg PO Q8HR PRN #12 tablet 04/25/18 Unknown Rx amLODIPine [Norvasc] 10 mg PO ONCE #30 tablet 04/25/18 Unknown Rx methOCARBAMOL [Robaxin TAB] 500 mg PO BID #10 tab 04/25/18 Unknown Rx Ibuprofen [Motrin] 600 mg PO Q8H PRN #20 tablet 05/01/18 Unknown Rx Ondansetron [Zofran Odt] 4 mg PO Q8HR PRN #10 tab.rapdis 05/01/18 Unknown Rx Cetirizine HCl [ZyrTEC] 10 mg PO QAM 7 Days #7 capsule 08/09/18 Unknown Rx methylPREDNISolone [Medrol] 4 mg PO QAM 6 Days #1 tab.ds.pk 08/09/18 Unknown Rx Amlodipine Besylate [Norvasc] 10 mg PO QDAY #30 tablet 09/05/18 Unknown Rx HYDROcodone/APAP 5-325 [[place] 1 each PO Q6H PRN #10 tablet 09/05/18 Unknown Rx 5-325 mg TAB] Acetaminophen [Acetaminophen TAB] 1,000 mg PO Q6HR PRN #30 tablet 03/14/19 Un known Rx Metoclopramide [Reglan] 10 mg PO Q6H PRN #30 tablet 03/14/19 Unknown Rx amLODIPine [Norvasc] 10 mg PO DAILY #30 tab 03/14/19 Unknown Rx diphenhydrAMINE [Benadryl CAP] 25 mg PO Q6HR PRN #30 capsule 03/14/19 Unknown Rx ED Physical Exam - General Limitations: No Limitations General appearance: alert, in no apparent distress - Head Head exam: Present: atraumatic, normocephalic - Eye Eye exam: Present: normal appearance, PERRL, EOMI. Absent: conjunctival injection, nystagmus Pupils: Present: normal accommodation - ENT ENT exam: Present: normal orophraynx, mucous membranes moist, TM's normal bilaterally, normal external ear exam - Expanded ENT Exam Expanded Throat exam: Positive: tonsillar erythema, other (uvula midline no exudate no stridor no wheezing ). Negative: tonsillomegaly, tonsillar exudate, R peritonsillar mass, L peritonsillar mass - Neck Neck exam: Present: normal inspection, full ROM. Absent: tenderness, lymphadenopathy - Respiratory Respiratory exam: Present: normal lung sounds bilaterally. Absent: respiratory distress, wheezes, rales, rhonchi, stridor, chest wall tenderness - Cardiovascular Cardiovascular Exam: Present: regular rate, normal rhythm, normal heart sounds. Absent: systolic murmur, diastolic murmur, rubs, gallop - GI/Abdominal GI/Abdominal exam: Present: soft, normal bowel sounds. Absent: distended, tenderness, guarding, rebound, rigid, bruit, hernia - Rectal Rectal exam: Present: deferred - Extremities Exam Extremities exam: Present: normal inspection, full ROM, normal capillary refill. Absent: tenderness, pedal edema, joint swelling, calf tenderness - Back Exam Back exam: Present: normal inspection, full ROM. Absent: tenderness, CVA tenderness (R), CVA tenderness (L), muscle spasm, paraspinal tenderness, rash noted - Neurological Exam Neurological exam: Present: alert, oriented X3, CN II-XII intact, normal gait, reflexes normal. Absent: motor sensory deficit - Expanded Neurological Exam Expanded Neurological exam: Absent: ataxia Patient oriented to: Present: person, place, time Speech: Present: fluid speech Cranial nerves: EOM's Intact: Normal, Gag Reflex: Normal, Tongue Deviation: Normal, Nystagmus: Normal, Facial Sensation: Normal Cerebellar function: Finger to Nose: Normal, Heel to [place]: Normal Upper motor neuron: [place] Neglect: Normal, Pronator Drift: Normal, Sensory Extinction: Normal Motor strength exam: RUE: 5, LUE: 5, RLE: 5, LLE: 5 DTR: bicep (R): 2+, bicep (L): 2+, ankle (R): 2+, ankle (L): 2+ Best Eye Response ([place]): (4) open spontaneously Best Motor Response ([place]): (6) obeys commands Best Verbal Response ([place]): (5) oriented [place] Total: 15 - Psychiatric Psychiatric exam: Present: normal affect, normal mood - Skin Skin exam: Present: warm, dry, intact, normal color. Absent: rash ED Course Vital Signs 03/14/19 03/14/19 17:31 17:38 Temperature 98.5 F Pulse Rate 84 85 Respiratory 20 Rate Blood Pressure 162/112 162/110 Blood Pressure 162/112 [Right] O2 Sat by Pulse 100 Oximetry ED Medical Decision Making - Medical Decision Making Headache is improved pain now 2/10 BP improved plan: tylenol, benadryl, reglan, refill amlodipine follow up with pcp in 2-3 days, pt verbalized agreement and understanding of discharge plan. pt dc'd to home with stable condition at this time. Critical care attestation.: If time is entered above; I have spent that time in minutes in the direct care of this critically ill patient, excluding procedure time. ED Disposition Clinical Impression: Headache Qualifiers: Headache type: unspecified Headache chronicity pattern: acute headache Intractability: not intractable Qualified Code(s): R51 - Headache Disposition: DC-01 TO HOME OR SELFCARE Is pt being admited?: No Does the pt Need Aspirin: No Condition: Stable Instructions: Acute Headache (ED) Prescriptions: Acetaminophen [Acetaminophen TAB] 1,000 mg PO Q6HR PRN #30 tablet PRN Reason: Headache diphenhydrAMINE [Benadryl CAP] 25 mg PO Q6HR PRN #30 capsule PRN Reason: Headache amLODIPine [Norvasc] 10 mg PO DAILY #30 tab Metoclopramide [Reglan] 10 mg PO Q6H PRN #30 tablet PRN Reason: Headache Referrals: PRIMARY CARE,MD [Primary Care Provider] - 3-5 Days Forms: Work/School Release Form(ED) Time of Disposition: 19:17
[2019-03-14 19:33] VITALS: BP 137/103
== END 2019-03-14 19:31 | disposition home or self-care (01) ==
LOC: ED 16:28
DX: R51 Headache (principal); I10 Essential (primary) hypertension; G43.909 Migraine, unspecified, not intractable, without status migrainosus; F17.200 Nicotine dependence, unspecified, uncomplicated; Z79.899 Other long term (current) drug therapy
CPT/HCPCS: 96374; 96375; 99282; J1200; J1885; J2765

== ENCOUNTER 2019-05-16 13:24 | Emergency (ER) | payer SELFPAY ==
--- NOTE | 2019-05-16 13:43 | Event Note ---
ED Screening Note Date of service: 05/16/19 Time: 13:39 ED Screening Note: This is a 28 y.o. F. that presents to the ER with headache and blurry vision since this morning. PMH of HTN Reports being off medication for 2 months. This initial assessment/diagnostic orders/clinical plan/treatment(s) is/are subject to change based on patients health status, clinical progression and re- assessment by fellow clinical providers in the ED. Further treatment and workup at subsequent clinical providers discretion. Patient/guardian urged not to elope from the ED as their condition may be serious if not clinically assessed and managed. Initial orders include: Labs
[2019-05-16 14:38] LABS: Basophils % (Auto) 0.4 % (0.0-1.8); Eosinophils # (Auto) 0.1 K/mm3 (0.0-0.4); Eosinophils % (Auto) 1.4 % (0.0-4.3); Hematocrit 40.3 % (30.3-42.9); Hemoglobin 12.8 gm/dl (10.1-14.3); Lymphocytes # (Auto) 1.4 K/mm3 (1.2-5.4); Lymphocytes % (Auto) 22.3 % (13.4-35.0); Mean Corpuscular HGB Conc 32 % (30-34); Mean Corpuscular Volume 92 fl (79-97); Monocytes # (Auto) 0.6 K/mm3 (0.0-0.8); Monocytes % (Auto) 9.6 % (0.0-7.3); Platelet Count 359 K/mm3 (140-440); Red Blood Count 4.38 M/mm3 (3.65-5.03); Red Cell Distribution Width 16.9 % (13.2-15.2)
[2019-05-16 15:02] LABS: BUN/Creatinine Ratio 14; Blood Urea Nitrogen 11 mg/dL (7-17); Calcium 8.8 mg/dL (8.4-10.2); Hemolysis Index 8
[2019-05-16] MEDS ORDERED: SUMAtriptan SUCCINATE 50 MG TAB PO ONE (17:00)
[2019-05-16] MEDS ORDERED: METOCLOPRAMIDE 10 MG TAB PO ONE (17:46)
[2019-05-16] MEDS ORDERED: amLODIPine 5 MG TAB PO ONE (17:50)
--- NOTE | 2019-05-16 18:01 | Emergency Department Report ---
<JAIME CAO - Last Filed: 05/16/19 18:26> ED General Adult HPI - General Chief complaint: High BP Stated complaint: HBP/SOB/JAQUAN/BACK PAIN/EYE PAIN Time Seen by Provider: 05/16/19 13:39 Source: patient Mode of arrival: Ambulatory Limitations: No Limitations - History of Present Illness Initial comments: Patient is a 28-year-old female presents emergency room with complaints of "high blood pressure." She states for the last few days she has had headache, pain in the eyes, nausea. she denies any vision changes, vomiting, numbness, weakness, speech disturbance, gait disturbance. Patient states she has a past medical history of high blood pressure and has not taken her medication in "awhile". Patient does not know what her blood pressure medication is. She denies any other past medical history or allergies medications. she states she does not have a PCP. pt was evaluated in the ED for the exact same complaint two months ago, she never followed up with a primary care doctor. pt was given prescription for amlodipine 10 mg in march 2019. - Related Data Previous Rx's Medication Instructions Recorded Last Taken Type Ibuprofen [Motrin] 600 mg PO Q8H PRN #12 tablet 10/30/17 Unknown Rx traMADol [Ultram] 50 mg PO Q6HR PRN #12 tablet 10/30/17 Unknown Rx Ibuprofen [Motrin] 800 mg PO Q8HR PRN #30 tablet 11/07/17 Unknown Rx Metoprolol [Lopressor TAB] 25 mg PO BID 30 Days #60 tablet 11/07/17 Unknown Rx predniSONE [Prednisone] 50 mg PO QDAY #5 tablet 11/07/17 Unknown Rx Acetaminophen/Codeine [Tylenol 1 tab PO Q6H PRN #8 tab 04/25/18 Unknown Rx /Codeine # 3 tab] Ibuprofen [Motrin 800 MG tab] 800 mg PO Q8HR PRN #12 tablet 04/25/18 Unknown Rx amLODIPine 10 mg PO ONCE #30 tablet 04/25/18 Unknown Rx methOCARBAMOL [Robaxin TAB] 500 mg PO BID #10 tab 04/25/18 Unknown Rx Ibuprofen [Motrin] 600 mg PO Q8H PRN #20 tablet 05/01/18 Unknown Rx Ondansetron [Zofran Odt] 4 mg PO Q8HR PRN #10 tab.rapdis 05/01/18 Unknown Rx Cetirizine HCl [ZyrTEC] 10 mg PO QAM 7 Days #7 capsule 08/09/18 Unknown Rx methylPREDNISolone [Medrol] 4 mg PO QAM 6 Days #1 tab.ds.pk 08/09/18 Unknown Rx Amlodipine Besylate [Norvasc] 10 mg PO QDAY #30 tablet 09/05/18 Unknown Rx HYDROcodone/APAP 5-325 [Chazy 1 each PO Q6H PRN #10 tablet 09/05/18 Unknown Rx 5-325 mg TAB] Acetaminophen [Acetaminophen TAB] 1,000 mg PO Q6HR PRN #30 tablet 03/14/19 Unknown Rx Metoclopramide [Reglan] 10 mg PO Q6H PRN #30 tablet 03/14/19 Unknown Rx amLODIPine 10 mg PO DAILY #30 tab 03/14/19 Unknown Rx diphenhydrAMINE [Benadryl CAP] 25 mg PO Q6HR PRN #30 capsule 03/14/19 Unknown Rx Acetaminophen [Non-Aspirin Extra 1,000 mg PO Q6H PRN #60 tablet 05/16/19 Unknown Rx Strength] Metoclopramide [Reglan] 10 mg PO Q6H PRN #30 tab 05/16/19 Unknown Rx amLODIPine 10 mg PO DAILY #30 tab 05/16/19 Unknown Rx diphenhydrAMINE [Benadryl CAP] 25 mg PO Q6H PRN #30 capsule 05/16/19 Unknown Rx Allergies Allergy/AdvReac Type Severity Reaction Status Date / Time No Known Allergies Allergy Verified 03/14/19 16:31 ED Review of Systems Comment: All other systems reviewed and negative ED Past Medical Hx - Past Medical History Hx Hypertension: Yes Hx Headaches / Migraines: Yes - Surgical History Additional Surgical History: C/S, right ovary and fallopian tube removed - Social History Smoking Status: Current Every Day Smoker Substance Use Type: Alcohol - Medications Home Medications: Home Medications Medication Instructions Recorded Confirmed Last Taken Type Ibuprofen [Motrin] 600 mg PO Q8H PRN #12 tablet 10/30/17 Unknown Rx traMADol [Ultram] 50 mg PO Q6HR PRN #12 tablet 10/30/17 Unknown Rx Ibuprofen [Motrin] 800 mg PO Q8HR PRN #30 tablet 11/07/17 Unknown Rx Metoprolol [Lopressor TAB] 25 mg PO BID 30 Days #60 tablet 11/07/17 Unknown Rx predniSONE [Prednisone] 50 mg PO QDAY #5 tablet 11/07/17 Unknown Rx Acetaminophen/Codeine [Tylenol 1 tab PO Q6H PRN #8 tab 04/25/18 Unknown Rx /Codeine # 3 tab] Ibuprofen [Motrin 800 MG tab] 800 mg PO Q8HR PRN #12 tablet 04/25/18 Unknown Rx amLODIPine 10 mg PO ONCE #30 tablet 04/25/18 Unknown Rx methOCARBAMOL [Robaxin TAB] 500 mg PO BID #10 tab 04/25/18 Unknown Rx Ibuprofen [Motrin] 600 mg PO Q8H PRN #20 tablet 05/01/18 Unknown Rx Ondansetron [Zofran Odt] 4 mg PO Q8HR PRN #10 tab.rapdis 05/01/18 Unknown Rx Cetirizine HCl [ZyrTEC] 10 mg PO QAM 7 Days #7 capsule 08/09/18 Unknown Rx methylPREDNISolone [Medrol] 4 mg PO QAM 6 Days #1 tab.ds.pk 08/09/18 Unknown Rx Amlodipine Besylate [Norvasc] 10 mg PO QDAY #30 tablet 09/05/18 Unknown Rx HYDROcodone/APAP 5-325 [Chazy 1 each PO Q6H PRN #10 tablet 09/05/18 Unknown Rx 5-325 mg TAB] Acetaminophen [Acetaminophen TAB] 1,000 mg PO Q6HR PRN #30 tablet 03/14/19 Unknown Rx Metoclopramide [Reglan] 10 mg PO Q6H PRN #30 tablet 03/14/19 Unknown Rx amLODIPine 10 mg PO DAILY #30 tab 03/14/19 Unknown Rx diphenhydrAMINE [Benadryl CAP] 25 mg PO Q6HR PRN #30 capsule 03/14/19 Unknown Rx Acetaminophen [Non-Aspirin Extra 1,000 mg PO Q6H PRN #60 tablet 05/16/19 Unknown Rx Strength] Metoclopramide [Reglan] 10 mg PO Q6H PRN #30 tab 05/16/19 Unknown Rx amLODIPine 10 mg PO DAILY #30 tab 05/16/19 Unknown Rx diphenhydrAMINE [Benadryl CAP] 25 mg PO Q6H PRN #30 capsule 05/16/19 Unknown Rx ED Physical Exam - General Limitations: No Limitations General appearance: alert, in no apparent distress - Head Head exam: Present: atraumatic, normocephalic - Eye Eye exam: Present: normal appearance - ENT ENT exam: Present: mucous membranes moist - Respiratory Respiratory exam: Present: normal lung sounds bilaterally. Absent: respiratory distress, wheezes, rales, rhonchi, stridor, chest wall tenderness, accessory muscle use, decreased breath sounds, prolonged expiratory - Cardiovascular Cardiovascular Exam: Present: regular rate, normal rhythm, normal heart sounds. Absent: systolic murmur, diastolic murmur, rubs, gallop - Neurological Exam Neurological exam: Present: alert, oriented X3, CN II-XII intact, normal gait. Absent: motor sensory deficit - Psychiatric Psychiatric exam: Present: normal affect, normal mood - Skin Skin exam: Present: warm, dry, intact ED Medical Decision Making - Lab Data Result diagrams: 05/16/19 14:16 05/16/19 14:16 - Medical Decision Making s/o Lev Gonzalez NP pending repeat blood pressure and improvement of headache ED Disposition Clinical Impression: HTN (hypertension) Qualifiers: Hypertension type: essential hypertension Qualified Code(s): I10 - Essential (primary) hypertension Headache Qualifiers: Headache type: unspecified Headache chronicity pattern: acute headache Intractability: not intractable Qualified Code(s): R51 - Headache Disposition: DC-01 TO HOME OR SELFCARE Condition: Stable Instructions: Hypertension (ED) Prescriptions: amLODIPine 10 mg PO DAILY #30 tab diphenhydrAMINE [Benadryl CAP] 25 mg PO Q6H PRN #30 capsule PRN Reason: Headache Acetaminophen [Non-Aspirin Extra Strength] 1,000 mg PO Q6H PRN #60 tablet PRN Reason: Headache Metoclopramide [Reglan] 10 mg PO Q6H PRN #30 tab PRN Reason: Headache Referrals: MARLEN HAINES MD [Referring] - 3-5 Days [facility] [Outside] - 3-5 Days Forms: Work/School Release Form(ED) <JAZMIN GONZALEZ - Last Filed: 05/16/19 21:12> ED Review of Systems ROS: Stated complaint: HBP/SOB/JAQUAN/BACK PAIN/EYE PAIN Other details as noted in HPI ED Course Vital Signs 05/16/19 05/16/19 05/16/19 13:38 16:28 16:41 Temperature 97.9 F Pulse Rate 79 69 Respiratory 18 18 Rate Blood Pressure 172/121 161/107 Blood Pressure 161/107 [Left] O2 Sat by Pulse 100 100 Oximetry 05/16/19 05/16/19 17:48 18:56 Temperature Pulse Rate 79 Respiratory 20 Rate Blood Pressure Blood Pressure 170/123 [Left] O2 Sat by Pulse Oximetry ED Medical Decision Making - Lab Data Result diagrams: 05/16/19 14:16 05/16/19 14:16 - Radiology Data Radiology results: report reviewed, image reviewed negative ct brain Critical care attestation.: If time is entered above; I have spent that time in minutes in the direct care of this critically ill patient, excluding procedure time. ED Disposition Is pt being admited?: No Does the pt Need Aspirin: No Time of Disposition: 21:11
[2019-05-16] MEDS ORDERED: HYDROcodone/ACETAMINOPHEN 5-325 MG TAB PO ONE (18:50)
[2019-05-16 21:21] VITALS: BP 152/101
--- NOTE | 2019-05-26 09:56 | Cat Scan Report ---
CT BRAIN: 05/16/2019 INDICATION / CLINICAL INFORMATION: headache. COMPARISON: 09/05/2018 FINDINGS: BRAIN/INTRACRANIAL STRUCTURES: Unenhanced CT images of the brain were obtained. There is no evidence of acute abnormality. Ventricles and sulci are normal in size and shape. There is no evidence of hemorrhage or mass. There are no abnormal extra-axial fluid collections. There is been no change when compared to the prior exam. EXTRACRANIAL STRUCTURES: Unremarkable. IMPRESSION: Negative unenhanced CT of the brain. All CT scans at this location are performed using dose reduction to ALARA by means of automated expos ure control. Signer Name: Amol Purdy MD Signed: 05/16/2019 8:28 PM Workstation Name: [id number]
== END 2019-05-16 21:21 | disposition home or self-care (01) ==
LOC: ED 13:24
DX: I10 Essential (primary) hypertension (principal); G43.909 Migraine, unspecified, not intractable, without status migrainosus; F17.200 Nicotine dependence, unspecified, uncomplicated; F10.10 Alcohol abuse, uncomplicated; Z79.899 Other long term (current) drug therapy
CPT/HCPCS: 36415; 70450; 80048; 85025; 99284